=== PATIENT | female | born 1925 | race Caucasian/White ===

== ENCOUNTER → 2017-04-09 | Outpatient (CLI) | payer MEDICARE ==
--- NOTE | 2017-04-09 14:00 | MR ---
MR lumbar spine wo/w con dajuan radiculopathy MultiHance Multiplanar, multiecho imaging of the lumbar spine was obtained without contrast on a 3 Lin magnet. REFERENCE:None. FINDINGS: There is an incompletely visualized 4.1 cm cystic mass involving the lower pole of the rig ht kidney. There is an extrarenal pelvis in the left kidney as well as a 1 cm cystic lesion in the mi d polar region of the left kidney. Paraspinal soft tissues are otherwise unremarkable. There is a moderate dextroscoliosis. Vertebral body height and alignment are maintained. Cord signal is maintained. The conus ends normally at the level of the mid body of L1. At T12-L1, there is disc space loss and disc desiccation. There is mild left-sided intervertebral for aminal narrowing. There is diffuse disc displacement. At L1-2, there is severe disc space loss and disc desiccation. There is hypertrophic spondylosis both anteriorly and posteriorly. There is mild, bilateral intervertebral foraminal narrowing, worse on th e left than the right. There is a diffuse disc displacement. There are hypertrophic changes and capsu litis within the facets. There is mild central canal compromise. At L2-3, there is disc space loss and disc desiccation. There is bilateral intervertebral foraminal n arrowing, worse on the right than the left. There is a broad-based disc protrusion. There are hypertr ophic changes in the facets. There is severe central canal stenosis. At L3-4, there is disc space loss and disc desiccation. There is bilateral intervertebral foraminal n arrowing. There is a diffuse disc displacement. There is capsulitis and hypertrophic changes in the f acets. There is moderate central canal compromise. At L4-5, there is disc space loss and disc desiccation. There is mild, bilateral intervertebral glenn inal narrowing. There are hypertrophic changes and capsulitis within the facets. There is a diffuse d isc displacement. There is moderate to severe central canal compromise. At L5-S1, there is disc space loss and disc desiccation. There is a diffuse disc displacement. Interv ertebral foramina are reasonably well-maintained. This hypertrophic change in the facets. IMPRESSION: 1. DIFFUSE DEGENERATIVE DISC DISEASE AND FACET ARTHROPATHY. 2. MULTILEVEL INTERVERTEBRAL FORAMINAL NARROWING. 3. VARYING DEGREES OF CENTRAL CANAL COMPROMISE, MOST MARKED AT L2-3 AND L4-5.
== END | disposition home or self-care (01) ==
LOC: RADMRIMAIN 12:04
PROVIDERS: ATTEND Family Medicine
DX: M99.73 Connective tissue and disc stenosis of intervertebral foramina of lumbar region (principal); M51.16 Intervertebral disc disorders with radiculopathy, lumbar region; M46.06 Spinal enthesopathy, lumbar region; M53.86 Other specified dorsopathies, lumbar region
CPT/HCPCS: 82565; 84520; 72158; A9577